=== PATIENT | female | born 1955 ===

== ENCOUNTER → 2023-09-24 13:54 | Outpatient (REF) | payer OTHER, MEDICARE, SELFPAY | LOC: WDC 13:54 | PROVIDERS: ATTENDING PHYSICIAN Emergency Medicine | DX: M25.551 Pain in right hip (principal); Z12.31 Encounter for screening mammogram for malignant neoplasm of breast; Z78.0 Asymptomatic menopausal state | CPT/HCPCS: 77063; 77067; 77080 ==

== ENCOUNTER → 2024-10-23 08:20 | Outpatient (REF) | payer OTHER, SELFPAY | LOC: WDC 08:20 | PROVIDERS: ATTENDING PHYSICIAN Emergency Medicine | DX: Z12.31 Encounter for screening mammogram for malignant neoplasm of breast (principal) | CPT/HCPCS: 77063; 77067 ==